=== PATIENT | female | born 1990 | race Caucasian/White ===

== ENCOUNTER 2019-11-11 17:47 | Emergency (ER) | payer OTHER, SELFPAY ==
[2019-11-11 18:30] VITALS: BP 118/80; PULSE 80; RESP 16; TEMP 36.7; O2SAT 98
--- NOTE | 2019-11-11 18:51 | ED.URI ---
HPI - URI/Sore Throat General Chief Complaint: Upper Respiratory Infection Stated Complaint: Sore Throat Time Seen by Provider: 11/11/19 18:51 Source: patient and family History of Present Illness HPI Narrative: Patient presents with a sore throat that started 2 days ago. Patient states her son was tested positive for strep throat 3 days ago. No trouble swallowing no drooling. MD elicited complaint: sore throat Related Data Allergies Allergy/AdvReac Type Severity Reaction Status Date / Time No Known Allergies Allergy Mild Unverified 12/22/18 09:27 Review of Systems Review of Systems: Narrative: CONSTITUTIONAL: Denies fever, chills, or sweats. EYES: Denies visual changes, redness, or discharge. ENT: Denies rhinorrhea, congestion, sore throat, or otalgia. CARDIOVASCULAR: Denies chest pain, palpitations, or edema. RESPIRATORY: Denies cough or dyspnea. GASTROINTESTINAL: Denies abdominal pain, nausea, vomiting, or diarrhea. GENITOURINARY: Denies dysuria or hematuria. SKIN: Denies rash or itching. MUSCULOSKELETAL: Denies back pain, joint pain, or myalgia. NEUROLOGIC: Denies headache, numbness, or weakness. PSYCHIATRIC: Denies anxiety or depression. PMFSH Comments At time of signature, agree with nursing past medical, surgical, social and family history. There is no relevant family history pertinent to the presenting complaint Exam Narrative: Exam Narrative: GENERAL: Well-appearing, well-nourished, and in no acute distress. HEAD: Normocephalic, atraumatic. EYES: PERRLA and EOMI. ENT: Nares clear, no rhinorrhea or epistaxis. Mucous membranes moist. Mild pharyngeal erythremia no exudate no drooling no trismus able to open mouth fully NECK: Supple. CHEST: Clear to auscultation. No respiratory distress. HEART: Regular rate and rhythm. No murmur heard. Normal peripheral pulses. ABDOMEN: Soft, nontender, nondistended, normal active bowel sounds. EXTREMITIES: Normal range of motion. No edema. SKIN: Warm, dry, no rash. NEURO: No focal deficits. Alert and oriented x3. Luis Coma Scale Eye Opening: Spontaneous 4 [place] Coma Scale Motor: Obeys Commands 6 [place] Coma Scale Verbal: Oriented 5 Luis Coma Scale Total 15 Course Vital Signs Vital signs: Vital Signs Temperature 36.7 C 11/11/19 18:30 Pulse Rate 80 11/11/19 18:30 Respiratory Rate 16 11/11/19 18:30 Blood Pressure 118/80 11/11/19 18:30 Pulse Oximetry 98 11/11/19 18:30 Temperature 36.7 C 11/11/19 18:30 Pulse Rate 80 11/11/19 18:30 Respiratory Rate 16 11/11/19 18:30 Blood Pressure 118/80 11/11/19 18:30 Pulse Oximetry 98 11/11/19 18:30 MDM - URI/Sore Throat Differential Diagnosis Differential diagnosis: Likely upper respiratory infection, otitis media, sinusitis and viral infection Lab Data Labs: Strep Screen Positive Group A Strep *(Reference Range: Negative)* Critical Care Time Critical Care Time Critical Care Time: No Discharge Plan Discharge Clinical Impression: Pharyngitis Qualifiers: Pharyngitis/tonsillitis etiology: streptococcus Qualified Code(s): J02.0 - Streptococcal pharyngitis Patient Disposition: Home, Self-Care Condition: Stable Instructions: Antibiotic Form Additional Instructions: Increase fluids especially juices and water [id number] cough and cold medicine of your choice for your symptoms Salt water gargles, throat lozenges or throat sprays as desired change toothbrush in 3-5 days Antibiotic as directed--finished the medication It may take the antibiotic 2-3 days to control the fever/symptoms ) You tested positive for Group A strep. Infection control: *Take the entire course of antibiotics. *Throw away your current toothbrush and begin using a new toothbrush in 48 hours in order to prevent re-infection. If anyone else's toothbrush is stored near yours, they should also throw away their current toothbrush and begin using a new one. *Sanitize all
== END 2019-11-11 19:14 | disposition home or self-care (01) ==
PROVIDERS: Emergency Provider Nurse Practitioner Family; PCP Nurse Practitioner Women's Health
DX: J02.0 Streptococcal pharyngitis (principal)
CPT/HCPCS: 87880; 99213; G0463

== ENCOUNTER 2019-11-13 17:55 | Emergency (ER) | payer OTHER, SELFPAY ==
[2019-11-13 18:01] VITALS: BP 132/87; PULSE 88; RESP 16; TEMP 37.1; O2SAT 97
--- NOTE | 2019-11-13 18:03 | ED.ABDPAIN ---
HPI - Abdominal Pain General Chief Complaint: Abdominal Pain Stated Complaint: lower abdomen pain Time Seen by Provider: 11/13/19 18:03 Source: patient and RN notes reviewed History of Present Illness HPI narrative: Patient is a 29-year-old female presents the urgent care with complaints of lower left pelvic pain. Patient states that it happened approximately 2 weeks ago and was pretty severe however it did go away on its own. Patient states it is in the left groin area radiating across the pelvic. Patient states that she did recently start spotting after not having a period for 1 year after an ablation and tubes tied. Patient does have a history of ovarian cysts. Patient is currently on amoxicillin for strep throat. Patient states that her primary REFERENCE TEST CLERK called her and Diflucan due to a vaginal itch this morning. However patient states that she then started developing the severe pain. Denies of any fever, nausea, vomiting. No other acute complaints. No acute distress noted. Patient read the plan of care. Related Data Home Medications Medication Instructions Recorded Confirmed amoxicillin 500 mg PO Q12H 11/13/19 11/13/19 Allergies Allergy/AdvReac Type Severity Reaction Status Date / Time No Known Allergies Allergy Mild Verified 11/13/19 18:09 Review of Systems Review of Systems: Narrative: CONSTITUTIONAL: Denies fever, chills, or sweats. EYES: Denies visual changes, redness, or discharge. ENT: Denies rhinorrhea, congestion, sore throat, or otalgia. CARDIOVASCULAR: Denies chest pain, palpitations, or edema. RESPIRATORY: Denies cough or dyspnea. GASTROINTESTINAL: Denies abdominal pain, nausea, vomiting, or diarrhea. GENITOURINARY: Denies dysuria or hematuria. Reports of lower left pelvic pain SKIN: Denies rash or itching. MUSCULOSKELETAL: Denies back pain, joint pain, or myalgia. NEUROLOGIC: Denies headache, numbness, or weakness. All other systems reviewed are negative, except as documented in HPI. PMFSH Social History Social History Gender identity (if verbalized by the patient): Female Comments At the time of my signature, I reviewed and agree with the nursing past medical, surgical, social, and family history. There is no relevant family history pertinent to the patient complaint. Exam Narrative: Exam Narrative: GENERAL: This is a well-nourished, well-developed patient, in no apparent distress. HEAD: normocephalic, atraumatic. EYES: PERRL. Sclera clear/white. Vision is grossly intact. EARS: External ears normal NOSE: External nose normal with no obvious nasal discharge THROAT: Mucous membranes moist NECK: Neck supple CARDIOVASCULAR: Regular rate and rhythm without murmurs, gallops, or rubs. RESPIRATORY: Clear to auscultation. Breath sounds equal bilaterally. No wheezes, rales, or rhonchi. GASTROINTESTINAL: Abdomen soft, nondistended. Bowel sounds are active. Moderate tenderness with left pelvic palpation SKIN: warm, intact with no suspicious lesions or rash, good texture and turgor. NEURO: awake, alert, and oriented to person, place and time. There were no obvious focal neurologic abnormalities. EXTREMITIES: No clubbing, cyanosis, or edema. BACK: Negative bilateral CVA tenderness Course Vital Signs Vital signs: Vital Signs Temperature 98.7 F 11/13/19 18: Pulse Rate 88 11/13/19 18:01 Respiratory Rate 16 11/13/19 18:01 Blood Pressure 132/87 11/13/19 18:01 Pulse Oximetry 97 11/13/19 18:01 Temperature 98.7 F 11/13/19 18:01 Pulse Rate 88 11/13/19 18:01 Respiratory Rate 16 11/13/19 18:01 Blood Pressure 132/87 11/13/19 18:01 Pulse Oximetry 97 11/13/19 18:01 Reviewed Transfer Transfered to: [facility] Transportation: Other (Private car) Transfer rationale: Further evaluation and treatment Accepting physician: Dr. Cordova MDM - Abdominal Pain MDM Narrative Medical decision making narrative: Review
--- NOTE | 2019-11-13 18:17 | PC.NURSE ---
NO UC ORDERED PER FRANK
== END 2019-11-13 18:15 | disposition short-term general hospital (02) ==
PROVIDERS: Emergency Provider Nurse Practitioner Family; PCP Nurse Practitioner Women's Health
DX: R10.2 Pelvic and perineal pain (principal); Z87.42 Personal history of other diseases of the female genital tract
CPT/HCPCS: 81003; 99212; G0463

== ENCOUNTER 2021-03-18 16:47 | Emergency (ER) | payer OTHER, SELFPAY ==
[2021-03-18 16:53] VITALS: BP 122/73; PULSE 110; RESP 16; TEMP 37.9; O2SAT 100
[2021-03-18 17:01] VITALS: BP 122/73; PULSE 110; RESP 16; TEMP 37.9; O2SAT 100
--- NOTE | 2021-03-18 17:14 | ED.URI ---
HPI - URI/Sore Throat General Chief Complaint: Upper Respiratory Infection Stated Complaint: Sore Throat, Fever, Drainage Time Seen by Provider: 03/18/21 17:14 Source: patient and RN notes reviewed Mode of arrival: ambulatory Limitations: no limitations History of Present Illness HPI Narrative: 30 year old female who present [facility] with complaints of sore throat, nasal congestion and drainage, fevers with chills and sweats.and post nasal drainage. Patient denies any cough or any shortness of breath, denies any ear pain. Patient states that she has history of strep throat and sinusitis MD elicited complaint: fever, sore throat, rhinorrhea and nasal congestion Pertinent past history: sinusitis and other (strep throat) Onset (ago): day(s) Related Data Allergies Allergy/AdvReac Type Severity Reaction Status Date / Time No Known Allergies Allergy Mild Verified 03/18/21 17:01 Review of Systems Review of Systems: Narrative: CONSTITUTIONAL positive for fever, chills, or sweats. EYES: Denies visual changes, redness, or discharge. ENT: Positive for rhinorrhea, congestion, sore throat, no otalgia. CARDIOVASCULAR: Denies chest pain, palpitations, or edema. RESPIRATORY: Denies cough or dyspnea. GASTROINTESTINAL: Denies abdominal pain, nausea, vomiting, or diarrhea. GENITOURINARY: Denies dysuria or hematuria. SKIN: Denies rash or itching. MUSCULOSKELETAL: Denies back pain, joint pain, or myalgia. NEUROLOGIC: Denies headache, numbness, or weakness. PSYCHIATRIC: Denies anxiety or depression. All systems reviewed & are unremarkable except as noted in HPI and below PMFSH Past Medical History Medical History (Updated 03/22/21 @ 12:48 by Mayra Ross NP) ADHD (attention deficit hyperactivity disorder) Endometriosis History of strep sore throat Hx of migraines Sinusitis Surgical History Surgical History (Updated 03/22/21 @ 12:50 by Mayra Ross NP) H/O laparoscopy endometriosis H/O tubal ligation History of endometrial ablation Family History Family History (Updated 03/22/21 @ 12:50 by Mayra Ross NP) Other No significant family history Social History Social History (Updated 03/22/21 @ 12:51 by Mayra Ross NP) Smoking status: Never smoker Alcohol intake: current Alcohol use details: social rare Substance use: never Living arrangements: with family Gender identity (if verbalized by the patient): Female Comments At time of signature agree with nursing documentation of past medical , social, surgical and family history. No pertinent family history relevant to presenting complaint Exam Narrative: Exam Narrative: GENERAL: Well-appearing, well-nourished, and in no acute distress. HEAD: Normocephalic, atraumatic. EYES: PERRLA and EOMI. ENT: Nares red with clear to green tinged rhinorrhea no epistaxis. Mucous membranes moist.TM's normal with good light reflex, throat red with no lesions or exudate, tonsils red and swollen with painful swallowing. NECK: Supple.lymphadenopathy present CHEST: Clear to auscultation. No respiratory distress.SAO2 100% on room air HEART: Regular rate and rhythm. No murmur heard. Normal peripheral pulses. ABDOMEN: Soft, nontender, nondistended, normal active bowel sounds. EXTREMITIES: Normal range of motion. No edema. SKIN: Warm, dry, no rash. NEURO: No focal deficits. Alert and oriented x3. Course Vital Signs Vital signs: Vital Signs Temperature 37.9 C H 03/18/21 16:53 Pulse Rate 110 H 03/18/21 16:53 Respiratory Rate 16 03/18/21 16:53 Blood Pressure 122/73 03/18/21 16:53 Pulse Oximetry 100 03/18/21 16:53 Temperature 37.9 C H 03/18/21 17:01 Pulse Rate 110 H 03/18/21 17:01 Respiratory Rate 16 03/18/21 17:01 Blood Pressure 122/73 03/18/21 17:01 Pulse Oximetry 100 03/18/21 17:01 MDM - URI/Sore Throat Differential Diagnosis Differential diagnosis: Likely upper respiratory infection, sinusitis, viral infection, p
== END 2021-03-18 17:34 | disposition home or self-care (01) ==
PROVIDERS: Emergency Provider Registered Nurse; PCP Nurse Practitioner Women's Health
DX: J03.90 Acute tonsillitis, unspecified (principal); J06.9 Acute upper respiratory infection, unspecified; N80.9 Endometriosis, unspecified
CPT/HCPCS: 87081; 87880; 99213; G0463

== ENCOUNTER 2021-04-13 11:12 | Emergency (ER) | payer OTHER, SELFPAY ==
[2021-04-13 11:20] VITALS: BP 125/72; PULSE 88; RESP 16; TEMP 36.9; O2SAT 100
--- NOTE | 2021-04-13 12:29 | ED.GENADULT ---
HPI - General Adult General Chief complaint: Headache Stated complaint: severe migraine since wednesday Time Seen by Provider: 04/13/21 11:40 Source: patient and RN notes reviewed Mode of arrival: ambulatory Limitations: no limitations History of Present Illness HPI narrative: Patient is a 30-year-old female who presents with bitemporal headache for the last 5 days history of migraines as a child not as an adult has tried [id number] medications with minimal improvement notes dull aching pain. Patient denies injury trauma illness or other complaints presents in no distress normal gait normal speech does not appear uncomfortable Related Data Allergies Allergy/AdvReac Type Severity Reaction Status Date / Time No Known Allergies Allergy Mild Verified 03/18/21 17:01 Review of Systems Review of Systems: All systems reviewed & are unremarkable except as noted in HPI and below PMFSH Past Medical History Medical History ADHD (attention deficit hyperactivity disorder) Endometriosis History of strep sore throat Hx of migraines Sinusitis Surgical History Surgical History H/O laparoscopy endometriosis H/O tubal ligation History of endometrial ablation Family History Family History (Updated 03/22/21 @ 12:50 by Mayra Ross NP) Other No significant family history Social History Social History Smoking status: Never smoker Alcohol intake: current Alcohol use details: social rare Substance use: never Gender identity (if verbalized by the patient): Female Exam Narrative: GENERAL: Well-appearing, well-nourished, and in no acute distress. HEAD: Normocephalic, atraumatic. EYES: PERRLA and EOMI. ENT: Nares clear, no rhinorrhea or epistaxis. Mucous membranes moist. CHEST: Clear to auscultation. No respiratory distress. No wheezes rales or rhonchi HEART: Regular rate and rhythm. No murmur heard. Normal peripheral pulses. ABDOMEN: Soft, nontender, nondistended, normal active bowel sounds. EXTREMITIES: Normal range of motion. No edema. SKIN: Warm, dry, no rash. NEURO: No focal deficits. Alert and oriented x3. Cranial nerves II through XII grossly intact. Normal speech normal gait PSYCH: Normal mood and affect. Course Course Emergency Course: Patient in the room no distress aware of case findings treatment plan diagnosis will be discharged home with outpatient follow-up felt appropriate given that she does not appear distressed and had improvement with medications ABCs and vital signs intact and stable Vital Signs Vital signs: Vital Signs Temperature 98.5 F 04/13/21 11:20 Pulse Rate 88 04/13/21 11:20 Respiratory Rate 16 04/13/21 11:20 Blood Pressure 125/72 04/13/21 11:20 Pulse Oximetry 100 04/13/21 11:20 Temperature 98.5 F 04/13/21 11:20 Pulse Rate 88 04/13/21 11:20 Respiratory Rate 16 04/13/21 11:20 Blood Pressure 125/72 04/13/21 11:20 Pulse Oximetry 100 04/13/21 11:20 Medical Decision Making MDM Narrative Medical decision making narrative: Patients headache was not sudden or maximal in onset. There are o focal neurological deficits on exam. Subarachnoid hemorrhage is felt to be unlikey at this time. There is no history of fever, and neck is supple without meningismus, making meningitis unlikely. No traumatic history or signs of trauma on exam. No risk factors for CVA, risk factors reviewed. NO ocular signs on exam and in history to suggest acute glaucoma. Patients headache is felt to be a reasonable candidate for outpatient evaluation Vital Signs Vital Signs: Vital Signs Temperature 98.5 F 04/13/21 11:20 Pulse Rate 88 04/13/21 11:20 Respiratory Rate 16 04/13/21 11:20 Blood Pressure 125/72 04/13/21 11:20 Pulse Oximetry 100 04/13/21 11:20 Temperature 98.5 F 08/0
[2021-04-13] MEDS: SODIUM CHLORIDE 0.9% IV 1,000 ML 999 ML IV CONT (12:39)
[2021-04-13] MEDS: diphenhydrAMINE HCl INJ 50 MG/ML VIAL 25 MG IV PUSH (12:39)
[2021-04-13] MEDS: KETOROLAC 30 MG/ML VIAL (*BKC) IV PUSH (12:41)
[2021-04-13] MEDS: METOCLOPRAMIDE HCL INJ 10 MG/2 ML VIAL IV PUSH (12:43)
[2021-04-13 13:30] VITALS: BP 122/77; PULSE 78; RESP 16; TEMP 36.1; O2SAT 100
== END 2021-04-13 13:30 | disposition home or self-care (01) ==
PROVIDERS: Emergency Provider Emergency Medicine
DX: R51.9 Headache, unspecified (principal); N80.9 Endometriosis, unspecified
CPT/HCPCS: 96361; 96374; 96375; 99284; J1200; J1885; J2765; J7030

== ENCOUNTER 2021-09-13 15:46 | Emergency (ER) | payer OTHER, SELFPAY ==
--- NOTE | ~2021-09-13 | XR_ITS ---
EXAMINATION: XR chest 1V portable EXAM DATE: 09/13/2021 17:31 INDICATION: cough, headache and shortness of breath. Symptoms 3 days. TECHNIQUE: Portable AP frontal chest x-ray was obtained. There is no prior study for comparison. FINDINGS: The lungs are clear. There are no pleural effusions. The cardiomediastinal silhouette is within normal limits. There is no pneumothorax suspected. The bones and soft tissues are unremarkab le. IMPRESSION: Normal chest x-ray exam. 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
[2021-09-13 15:51] VITALS: BP 121/86; PULSE 84; RESP 20; TEMP 36.2; O2SAT 100
--- NOTE | 2021-09-13 17:32 | ECG_ITS ---
Measurements Intervals [place] Rate: 67 P: 27 MN: 123 QRS: 26 QRSD: 86 T: 29 QT: 378 QTc: 401 Interpretive Statements SINUS RHYTHM NORMAL ECG Electronically Signed On 09-13-2021 19:13:23 PARKING ASSISTANT by Shaji Farias D.O.
--- NOTE | 2021-09-13 17:58 | ED.URI ---
HPI - URI/Sore Throat General Chief Complaint: Upper Respiratory Infection Stated Complaint: SOB, headache, cough Time Seen by Provider: 09/13/21 17:24 Source: patient Mode of arrival: ambulatory Limitations: no limitations History of Present Illness HPI Narrative: This is a 31-year-old female that presents to the emergency department for cold symptoms present over the last week. Reports cough, congestion, and headache. Reports intermittently she has been feeling lightheaded. Reports shortness of breath, mostly with coughing spells. She does report she had a positive Covid swab earlier this week. Denies chest pain. Related Data Allergies Allergy/AdvReac Type Severity Reaction Status Date / Time No Known Allergies Allergy Mild Verified 09/13/21 17:24 Review of Systems Review of Systems: CONSTITUTIONAL: Denies fever ENT: Reports congestion CARDIOVASCULAR: Denies chest pain, or edema. RESPIRATORY: Reports cough and dyspnea. All systems reviewed & are unremarkable except as noted in HPI and below PMFSH Past Medical History Medical History ADHD (attention deficit hyperactivity disorder) Endometriosis History of strep sore throat Hx of migraines Sinusitis Surgical History Surgical History H/O laparoscopy endometriosis H/O tubal ligation History of endometrial ablation Family History Family History (Updated 03/22/21 @ 12:50 by Mayra Ross NP) Other No significant family history Social History Social History Smoking status: Never smoker Alcohol intake: current Alcohol use details: social rare Substance use: never Gender identity (if verbalized by the patient): Female Exam Narrative: GENERAL: Well-appearing, well-nourished, and in no acute distress. HEAD: Normocephalic, atraumatic. EYES: EOMI. ENT: Nares clear, no rhinorrhea or epistaxis. Mucous membranes moist. Oropharynx without tonsillar hypertrophy exudate or other lesions. Bilateral TMs pearly centeno non-bulging NECK: Supple. No adenopathy or masses. CHEST: Clear to auscultation. No respiratory distress. No wheezes rales or rhonchi HEART: Regular rate and rhythm. No murmur heard. Normal peripheral pulses. EXTREMITIES: Normal range of motion. No edema. SKIN: Warm, dry, no rash. NEURO: No focal deficits. Alert and oriented x3. PSYCH: Normal mood and affect Course Vital Signs Vital signs: Vital Signs Temperature 97.2 F L 09/13/21 15:51 Pulse Rate 84 09/13/21 15:51 Respiratory Rate 20 09/13/21 15:51 Blood Pressure 121/86 09/13/21 15:51 Pulse Oximetry 100 09/13/21 15:51 Temperature 97.2 F L 09/13/21 15:51 Pulse Rate 100 09/13/21 19:01 Respiratory Rate 20 09/13/21 15:51 Blood Pressure 119/85 09/13/21 19:01 Pulse Oximetry 100 09/13/21 15:51 MDM - URI/Sore Throat MDM Narrative Medical decision making narrative: Patient presents to the emergency department for cold symptoms ongoing over the last week. She is afebrile and nontoxic-appearing. Orthostatic upon arrival. Patient hydrated with relief. Also given Toradol and Tylenol with improvement in headache. CBC metabolic panel without concerning findings. Chest x-ray without acute cardiopulmonary abnormality. EKG is without acute changes. Baseline troponin is negative. D-dimer is not elevated. Patient was updated on case findings. Influenza screen was negative. She does report she had a positive rapid Covid earlier in the week. She was instructed to continue self-isolation and on continued care of viral infection. She is to follow-up with her primary care doctor. She was given warnings to return to the ER Lab Data Attestation: I reviewed the patient's lab results. Result diagrams: 09/13/21 18:42 09/13/21 18:42 Labs: Lab Results 09/13/21 0
[2021-09-13] MEDS: KETOROLAC (*BKC) 60 MG/2 ML VIAL IM (18:43)
[2021-09-13] MEDS: ACETAMINOPHEN 500 MG TABLET 1000 MG PO (18:43)
[2021-09-13 18:50] LABS: Basophils Percent Auto 0.1 % (0.2-1.2); Eosinophils Percent Auto 0.1 % (0-4.4); Hematocrit 37.9 % (37.0-47.0); Hemoglobin 12.8 g/dL (12.0-15.0); Immature Granulocyte Absolute 0.02 K/mm3 (0.00-0.031); Immature Granulocyte Percent A 0.3 % (0-0.5); Lymphocytes Absolute Auto 1.16 K/mm3 (0.9-3.2); Lymphocytes Percent Auto 15.8 % (18.3-44.2); Mean Corpuscular HGB Conc 33.8 g/dl (32-36); Mean Corpuscular Hemoglobin 30.8 pg (26-34); Mean Corpuscular Volume 91.3 fl (80-100); Mean Platelet Volume 10.2 fl (7.4-10.4); Monocytes Absolute Auto 0.5 K/mm3 (0.1-0.6); Monocytes Percent Auto 6.3 % (2.6-8.5); Neutrophils Absolute Auto 5.7 K/mm3 (1.3-6.7); Neutrophils Percent Auto 77.4 % (45.5-73.1); Platelet Count Result 211 k/mm3 (150-375); Red Blood Count 4.15 M/mm3 (4.2-5.4); Red Cell Distribution Width 11.8 % (11.5-14.5); White Blood Count 7.3 K/mm3 (4.5-10.0)
[2021-09-13 18:58] LABS: Anion Gap 7 mmol/L (8-16); Blood Urea Nitrogen 10 mg/dL (7-17); Calcium 9.1 mg/dL (8.4-10.2); Carbon Dioxide 30 mmol/L (22-30); Chloride 102 mmol/L (98-107); Estimated CRCL calculation 99 ml/min; Estimated Glomerular Filt Rate > 60; Glucose 104 mg/dL (65-110); Potassium 3.7 mmol/L (3.4-5.0); Sodium 139 mmol/L (137-145)
[2021-09-13 18:59] VITALS: BP 125/82; PULSE 70
[2021-09-13 18:59] LABS: Partial Thromboplastin Time 30.1 SECONDS (22.3-36.8); Prothrombin Time 13.2 Seconds (11.1-14.7)
[2021-09-13 19:00] VITALS: BP 126/84; PULSE 89
[2021-09-13 19:01] VITALS: BP 119/85; PULSE 100
[2021-09-13 19:02] LABS: D Dimer 0.33 ug/mL (<0.48)
[2021-09-13 19:10] LABS: Troponin I < 0.012 ng/mL (0.000-0.034)
[2021-09-13] MEDS: SODIUM CHLORIDE 0.9% IV 1,000 ML 999 ML IV CONT (19:46)
[2021-09-14 14:14] LABS: SARS-CoV-2 RNA PCR Positive
== END 2021-09-13 21:14 | disposition home or self-care (01) ==
PROVIDERS: Physician Assistant; Emergency Provider Emergency Medicine
DX: U07.1 COVID-19 (principal); J06.9 Acute upper respiratory infection, unspecified
CPT/HCPCS: 36415; 71045; 80048; 84484; 85025; 85380; 85610; 85730; 87804; 93005; 96360; 96372; 99284; A9270; C9803; J1885; J7030; U0003; U0005

== ENCOUNTER 2022-11-23 18:29 | Emergency (ER) | payer OTHER, SELFPAY ==
--- NOTE | ~2022-11-23 | CT_ITS ---
Non-contrast Head CT History: Headache Technique: Axial non-contrast imaging of the brain was performed. Dose reduction technique was used on this scan by utilizing automated exposure control and iterative reconstruction technique. The dose -length product (DLP) was 605.33 mGy-cm. Findings: There is no evidence of intracranial hemorrhage, mass lesion, or acute infarct. Brain par enchyma appears normal. The ventricles and subarachnoid spaces are normal in size. The calvarium ap pears normal. The visualized paranasal sinuses and mastoid air cells are clear. Impression: No significant abnormality seen. Reviewed, dictated and finalized at location . Impression: No significant abnormality seen.
[2022-11-23 18:52] VITALS: BP 115/71; PULSE 78; RESP 16; TEMP 36.9; O2SAT 99
[2022-11-23 19:11] LABS: Basophils Percent Auto 0.3 % (0.2-1.2); Eosinophils Absolute Auto 0.1 K/mm3 (0-0.3); Hematocrit 39.9 % (37.0-47.0); Hemoglobin 13.6 g/dL (12.0-15.0); Immature Granulocyte Absolute 0.01 K/mm3 (0.00-0.031); Immature Granulocyte Percent A 0.2 % (0-0.5); Lymphocytes Absolute Auto 2.03 K/mm3 (0.9-3.2); Lymphocytes Percent Auto 33.1 % (18.3-44.2); Mean Corpuscular HGB Conc 34.1 g/dl (32-36); Mean Corpuscular Hemoglobin 31.2 pg (26-34); Mean Corpuscular Volume 91.5 fl (80-100); Mean Platelet Volume 10.6 fl (7.4-10.4); Monocytes Absolute Auto 0.5 K/mm3 (0.1-0.6); Neutrophils Absolute Auto 3.5 K/mm3 (1.3-6.7); Neutrophils Percent Auto 57.4 % (45.5-73.1); Platelet Count Result 245 k/mm3 (150-375); Red Blood Count 4.36 M/mm3 (4.2-5.4); Red Cell Distribution Width 11.8 % (11.5-14.5); White Blood Count 6.1 K/mm3 (4.5-10.0)
[2022-11-23 19:21] LABS: Alanine Aminotransferase 19 U/L (6-35); Albumin Level 4.8 g/dL (3.5-5.1); Alkaline Phosphatase 43 U/L (38-126); Anion Gap 4 mmol/L (8-16); Aspartate Amino Transferase 24 U/L (14-36); Bilirubin,Total 0.5 mg/dL (0.2-1.3); Blood Urea Nitrogen 13 mg/dL (7-17); Calcium 8.9 mg/dL (8.4-10.2); Carbon Dioxide 31 mmol/L (22-30); Chloride 103 mmol/L (98-107); Estimated CRCL calculation 75 ml/min; Estimated Glomerular Filt Rate > 60; Glucose 131 mg/dL (65-110); Lipase 57 U/L (23-300); Potassium 3.9 mmol/L (3.4-5.0); Sodium 138 mmol/L (137-145)
[2022-11-24 00:10] VITALS: BP 138/97; PULSE 100; RESP 14; O2SAT 100
--- NOTE | 2022-11-24 01:09 | ED.ABDPAIN ---
HPI - Abdominal Pain General Chief Complaint: Abdominal Pain <Jennifer Lozano PA-C - Last Filed: 11/25/22 02:44> Stated Complaint: R sided abdominal pain <DANITZA Perez Last Filed: 11/25/22 02:44> Time Seen by Provider: 11/24/22 00:31 <Jennifer Lozano PA-C - Last Filed: 11/25/22 02:44> History of Present Illness HPI narrative: 32 y/o F w/o history of uterine ablation in 2014, ovarian cysts and endometriosis reports for acute onset RLQ abdominal pain that started this morning. Pt described the pain as sharp and stabbing. States it was not relieving, therefore she came to the ED. While waiting in the ED, the pain stopped and she has been w/o abdominal pain for 3 hours. Pt reports she thinks it may have been a ruptured cyst. Now, pt is complaining of bitemporal headache that is worse on the left side with associated nausea. Denies vomiting, photophobia, phonophobia, diarrhea, back pain, urinary complaints, vision changes, focal numbness or weakness, vaginal bleeding, vaginal discharge, concern for STDs. Denies CP, SOB, cough, fever, body aches, chills. Pt reports she has an upcoming apt with her OBGYN in 6 days. <Jennifer Lozano PA-C - Last Filed: 11/25/22 02:44> Related Data Allergies/Adverse Reactions: Allergies Allergy/AdvReac Type Severity Reaction Status Date / Time No Known Allergies Allergy Mild Verified 09/13/21 17:24 <Jennifer Lozano PA-C - Last Filed: 11/25/22 02:44> Review of Systems Review of Systems: CONSTITUTIONAL: Denies fever, chills EYES: Denies visual changes, redness, or discharge. ENT: Denies rhinorrhea, congestion, sore throat, or otalgia. CARDIOVASCULAR: Denies chest pain, palpitations, or edema. RESPIRATORY: Denies cough or dyspnea. GASTROINTESTINAL: See HPI GENITOURINARY: Denies dysuria or hematuria. SKIN: Denies rash or itching. MUSCULOSKELETAL: Denies back pain, joint pain, or myalgia. NEUROLOGIC: Denies numbness, dizziness, or weakness. PSYCHIATRIC: Denies anxiety or depression. <Jennifer Lozano PA-C - Last Filed: 11/25/22 02:44> PMFSH Past Medical History Medical History: Medical History ADHD (attention deficit hyperactivity disorder) Endometriosis History of strep sore throat Hx of migraines Sinusitis <Jennifer Lozano PA-C - Last Filed: 11/25/22 02:44> Surgical History Surgical History: Surgical History H/O laparoscopy endometriosis H/O tubal ligation History of endometrial ablation <Jennifer Lozano PA-C - Last Filed: 11/25/22 02:44> Family History Family History: Family History Other No significant family history <Jennifer Lozano PA-C - Last Filed: 11/25/22 02:44> Social History Social History: Social History Smoking status: Never smoker Alcohol intake: current Alcohol use details: social rare Substance use: never Living arrangements: with family Gender identity (if verbalized by the patient): Female <Jennifer Lozano PA-C - Last Filed: 11/25/22 02:44> Exam Narrative: GENERAL: Well-appearing, well-nourished, and in no acute distress. Pt resting comfortably in bed. She is pleasant and conversational. HEAD: Normocephalic, atraumatic. EYES: PERRLA and EOMI. ENT: Nares clear, no rhinorrhea or epistaxis. Mucous membranes moist. Oropharynx without tonsillar hypertrophy exudate or other lesions. NECK: Supple. No adenopathy or masses. No nuchal rigidity. CHEST: Clear to auscultation. No respiratory distress. No wheezes rales or rhonchi HEART: Regular rate and rhythm. No murmur heard. Normal peripheral pulses. ABDOMEN: Soft, nontender, nondistended, normal active bowel sounds. Negative McBurney's. Negative Wright. No rebound, rigidity or guarding. EXTREMI
[2022-11-24 01:19] LABS: Appearance Urine Turbid (Clear); Bacteria Urine 1+ /hpf; Bilirubin Urine Negative (Negative); Blood Urine Negative (Negative); Color Urine Yellow (Yellow); Glucose Urine UA Negative (Negative); Ketones Urine Trace mg/dL (Negative); Leukocyte Esterase Ur Trace LEU/UL (Negative); Need Manual Microscopic Reviewed; Nitrate Urine Negative (Negative); Protein Urine Trace mg/dL (Negative); Specific Grav Ur 1.035 (1.001-1.035); Squamous Epithelial Cell Urine Few /hpf (Few)
[2022-11-24 01:20] LABS: Mucus Urine Present /lpf
[2022-11-24 01:21] LABS: Add Urine Microscopic? YES
[2022-11-24 01:30] VITALS: BP 127/81; PULSE 71; RESP 16; O2SAT 100
--- NOTE | 2022-11-24 01:30 | PC.NURSE ---
pt denies any abd pain at this time but states she has a headache now. 04/22. + nausea.
[2022-11-24] MEDS: KETOROLAC 30 MG/ML VIAL (*BKC) IV PUSH (01:40)
[2022-11-24] MEDS: SODIUM CHLORIDE 0.9% IV 1,000 ML 999 ML IV CONT (01:41)
[2022-11-24] MEDS: diphenhydrAMINE HCl INJ 50 MG/ML VIAL 25 MG IV PUSH (01:41)
[2022-11-24] MEDS: PROCHLORPERAZINE EDISYLATE 10 MG/2 ML VIAL IV PUSH (01:46)
[2022-11-24 02:30] VITALS: BP 130/78; PULSE 70; RESP 16; O2SAT 98
[2022-11-24 06:00] VITALS: BP 112/71; PULSE 68; RESP 16; O2SAT 98
== END 2022-11-24 06:00 | disposition home or self-care (01) ==
PROVIDERS: Emergency Medicine; Emergency Provider Emergency Medicine; PCP Nurse Practitioner Women's Health
DX: N39.0 Urinary tract infection, site not specified (principal); R51.9 Headache, unspecified; N80.9 Endometriosis, unspecified
CPT/HCPCS: 36415; 70450; 80053; 81001; 81025; 83690; 85025; 87086; 96361; 96374; 96375; 99284; J0780; J1200; J1885; J7030

== ENCOUNTER 2024-05-09 15:45 | Emergency (ER) | payer OTHER, SELFPAY ==
[2024-05-09 15:53] VITALS: BP 132/67; PULSE 84; RESP 18; TEMP 37.2; O2SAT 99
--- NOTE | 2024-05-09 16:05 | ED.SKABFB ---
HPI - Skin/Abscess/Foreign Bdy General Chief complaint: Skin/Abscess/Foreign Body Stated complaint: Rash History of Present Illness HPI narrative: patient is a 33-year-old female, without significant past medical history, presents to [facility] with a pruritic rash over her legs and forearms bilaterally after being exposed to poison enzo a couple days ago. She has been applying or send hydrocortisone cream topically and states that is providing minimal relief. She denies any additional associated symptoms or modifying factors. No other skin surfaces are affected. She denies chance of . Related Data Allergies Allergy/AdvReac Type Severity Reaction Status Date / Time No Known Allergies Allergy Mild Verified 05/09/24 15:50 Review of Systems Integumentary/Breasts: Comments: Refer HPI [facility] Past Medical History Medical History ADHD (attention deficit hyperactivity disorder) Endometriosis History of strep sore throat Hx of migraines Sinusitis Surgical History Surgical History H/O laparoscopy endometriosis H/O tubal ligation History of endometrial ablation Family History Family History Other No significant family history Social History Social History Smoking status: Never smoker Alcohol intake: current Alcohol use details: social rare Substance use: never Living arrangements: with family Gender identity (if verbalized by the patient): Female Exam Const: General: healthy appearing and no acute distress Nutritional Appearance: well nourished Orientation/consciousness: patient oriented x3 Limitations: no limitations HENMT: Head: normal to inspection Ears: external ears normal and TM's normal bilaterally Face and sinus: normal facial exam and sinuses nontender Teeth and gingiva: dentition normal Throat: posterior oropharynx normal and uvula midline Eyes: Conjunctivae: conjunctivae normal Pupils: Equal, round and reactive pupils present Neck: Neck: normal visual inspection and no meningeal signs Chest: Chest palpation & inspection: normal inspection of the chest Resp: Effort & Inspection: normal respiratory effort Auscultation: clear to auscultation bilaterally Cardio: Rate: regular rate Rhythm: regular rhythm Skin: Other: patient has a papular rash in linear brush like eruptions over the forearms bilaterally, as well as the lower extremities bilaterally, patchy and sparsely present. No lymphangitis, no pustules or vesicles appreciated. No honey crusting, no tenderness to palpation over active skin surfaces. Course Course Emergency Course: Patient has classic plant based allergy /dermatitis, will treat with steroid taper, [id number] antihistamines are also encouraged. Patient verbalized understanding , she is agreeable plan of care. Level of Care: Express Care Visit ([id number]) Vital Signs Vital signs: Vital Signs Temperature 37.2 C 05/09/24 15:53 Pulse Rate 84 05/09/24 15:53 Respiratory Rate 18 05/09/24 15:53 Blood Pressure 132/67 05/09/24 15:53 Pulse Oximetry 99 05/09/24 15:53 Oxygen Delivery Room Air 05/09/24 15:53 Temperature 37.2 C 05/09/24 15:53 Pulse Rate 84 05/09/24 15:53 Respiratory Rate 18 05/09/24 15:53 Blood Pressure 132/67 05/09/24 15:53 Pulse Oximetry 99 05/09/24 15:53 Oxygen Delivery Room Air 05/09/24 15:53 MDM - Skin/Abscess/Foreign Bdy MDM Narrative Medical decision making narrative: oral steroid taper Differential Diagnosis Differential diagnosis: Likely eczema and contact dermatitis Discharge Plan Discharge Clinical Impression: Contact dermatitis Qualifiers: Contact dermatitis type: allergic Contact dermatitis trigger: non-food plants Qualified C
== END 2024-05-09 16:14 | disposition home or self-care (01) ==
PROVIDERS: Emergency Provider Nurse Practitioner Family
DX: L23.7 Allergic contact dermatitis due to plants, except food (principal); N80.9 Endometriosis, unspecified
CPT/HCPCS: 99213; G0463